=== PATIENT | male | born 1985 | race Caucasian/White ===

== ENCOUNTER → 2018-06-05 12:03 | Outpatient (CLI) | payer OTHER, SELFPAY ==
--- NOTE | 2018-06-05 12:21 | XR_ITS ---
XR chest 2V HISTORY: ITS.REASON: WGT LOSS, CHEST WALL MASS ORDERING PHYSICIAN: Juan Daniel Steiner MD PATIENT AGE: 33 years COMPARISON: 04/08/2016 FINDINGS: The cardiomediastinal silhouette and pulmonary vascularity are within normal limits. The lungs are clear without infiltrates, suspicious nodules, or pleural effusions. Calcified nodes are present in the left hilum and there is a calcified granuloma in the left lower lobe. No acute bony abnormalities. IMPRESSION: No acute finding. Old granulomatous disease
[2018-06-05 12:44] LABS: Basophils # 0.1 K/mm3 (0-0.2); Basophils % 0.6 % (0.1-2.0); Eosinophils # 0.3 K/mm3 (0.0-0.4); Hematocrit 47.7 % (42.0-52.0); Hemoglobin 16.8 g/dL (14.1-18.0); Lymphocytes # 2.7 K/mm3 (0.7-4.5); Lymphocytes % 32.6 K/mm3 (10-50); Mean Corpuscular HGB Conc 35.2 g/dL (31.8-35.4); Mean Corpuscular Volume 82.4 fl (80-94); Mean Platelet Volume 8.8 fl (7.4-10.4); Monocytes # 0.4 K/mm3 (0.1-1.0); Monocytes % 4.7 % (1.7-9.3); Neutrophils # 4.9 K/mm3 (1.8-7.8); Neutrophils % 58.2 % (37.0-80.0); Platelet Count 211 K/mm3 (142-424); Red Blood Count 5.79 M/mm3 (4.60-6.20); Red Cell Distribution Width 12.7 % (11.5-17.5); White Blood Count 8.4 K/mm3 (4.8-10.8)
[2018-06-05 13:50] LABS: Alanine Aminotransferase 61 U/L (12-78); Albumin Level 4.2 gm/dL (3.4-5.0); Albumin/Globulin Ratio 1.3 (1.1-1.8); Alkaline Phosphatase 69 U/L (46-116); Anion Gap 13.3 mEq/L (5-15); Aspartate Amino Transferase 26 U/L (15-37); Bilirubin,Total 0.4 mg/dL (0.2-1.0); Blood Urea Nitrogen 15 mg/dL (7-18); Carbon Dioxide 26 mmol/L (21.0-32.0); Chloride 108 mmol/L (98-107); Estimated Glomerular Filt Rate 86 ml/min (>60); Free Thyroxine Index 2.5 ug/dL (5.93-13.13); GFR (African American) 103 ML/MIN (>60); Globulin 3.3 gm/dl (1.3-3.2); Glucose 104 mg/dL (74-106); Potassium 4.3 mmoL/L (3.5-5.1); Sodium 143 mmol/L (136-145); T4 (Thyroxine) 7.1 ug/dl (4.7-13.3); Thyroid Stimulating Hormone 1.39 uIU/ml (0.358-3.740); Total Protein,Serum 7.5 gm/dL (6.4-8.2); Triiodothryronine (T3) Uptake 35 % (31-39)
[2018-06-07 12:50] LABS: Vitamin B12 588 pg/mL (232-1245)
[2018-06-07 12:51] LABS: Vitamin D 25 Hydroxy 32.7 ng/mL (30.0-100.0)
== END ==
LOC: LAB 12:03 → RAD 12:17
PROVIDERS: PCP Internal Medicine Adolescent Medicine; Visit Provider Internal Medicine Adolescent Medicine
DX: R63.4 Abnormal weight loss (principal); R22.2 Localized swelling, mass and lump, trunk
CPT/HCPCS: 36415; 71046; 80053; 82607; 82652; 84436; 84443; 84479; 85025

== ENCOUNTER → 2019-01-05 10:43 | Outpatient (CLI) | payer OTHER, SELFPAY ==
--- NOTE | 2019-01-05 10:53 | XR_ITS ---
XR hand RT min 3V HISTORY: Pain with difficulty gripping ITS.REASON: RT HAND PAIN ORDERING PHYSICIAN: Juan Daniel Steiner MD PATIENT AGE: 33 years COMPARISON: None FINDINGS: There is cortical thickening involving the mid shaft of the fifth metacarpal consistent with an old fracture. There is minimal hallmark angulation of the distal aspect of the fifth metacarpal. No acute fracture or dislocation. No significant arthritic change. IMPRESSION: Old healed fifth metacarpal fracture otherwise negative.
== END ==
PROVIDERS: PCP Internal Medicine Adolescent Medicine; Visit Provider Internal Medicine Adolescent Medicine
DX: M79.641 Pain in right hand (principal)
CPT/HCPCS: 73130

== ENCOUNTER → 2020-04-13 10:50 | Outpatient (CLI) | payer OTHER, SELFPAY ==
[2020-04-14 08:27] LABS: Covid-19 Nasal PCR Sendout UK NOT DETECTED
== END ==
PROVIDERS: PCP Internal Medicine Adolescent Medicine; Visit Provider Internal Medicine Adolescent Medicine
DX: Z20.828 Contact with and (suspected) exposure to other viral communicable diseases (principal)
CPT/HCPCS: U0003

== ENCOUNTER → 2020-08-07 17:15 | Outpatient (CLI) | payer OTHER, SELFPAY ==
[2020-08-09 14:49] LABS: Covid-19 Nasal PCR Sendout Lex NOT DETECTED
== END ==
PROVIDERS: PCP Internal Medicine Adolescent Medicine; Visit Provider Internal Medicine Adolescent Medicine
DX: Z03.818 Encounter for observation for suspected exposure to other biological agents ruled out (principal)
CPT/HCPCS: U0004

== ENCOUNTER → 2023-09-02 15:41 | Outpatient (CLI) | payer OTHER, SELFPAY ==
--- NOTE | 2023-09-02 15:46 | US_ITS ---
FINAL REPORT TECHNIQUE: Ultrasound images of the testicles were obtained bilaterally. Color Doppler images were obtained. CLINICAL HISTORY: Right testicular mass COMPARISON: None FINDINGS: The testicles are normal in size and echotexture bilaterally. Arterial flow is identified bilaterally. No intratesticular masses are identified. At the palpable abnormality in the right testicle is a 13 mm ovoid hypoechoic nodule adjacent to the testicle with a nonspecific appearance. It does not appear to represent a cyst. IMPRESSION: Solid-appearing nonspecific nodule right hemiscrotum at the site of palpable abnormality. Reviewed, Interpreted and Dictated by Gianluca Montelongo III, MD Transcribed by Alma Delia Abbott Authenticated and [facility]
== END ==
LOC: RAD 15:42
PROVIDERS: PCP Internal Medicine Adolescent Medicine; Visit Provider Internal Medicine Adolescent Medicine
DX: N50.89 Other specified disorders of the male genital organs (principal)
CPT/HCPCS: 76870